=== PATIENT | female | born 1980 | race Caucasian/White ===

== ENCOUNTER → 2017-05-31 | Outpatient (CLI) | payer BC ==
[~2017-05-31] MED LIST: PRENTAB26 PO
--- NOTE | 2017-05-31 08:19 | DIAGNOSTIC IMAGING REPORT ---
CERVICAL WITHOUT CONTRAST CLINICAL HISTORY: 36 years-old Female presenting with NECK L ARM PAIN/WEAKNESS, neck pain, numbness. TECHNIQUE: Multisequence, multiplanar MR imaging of the cervical spine was performed without the use of intravenous contrast. IV contrast: None. COMPARISON: 11/15/2015. FINDINGS: Localizer images: Unremarkable. Straightening of normal cervical lordosis likely positional. Vertebral bodies maintain normal height, alignment, and bone marrow signal intensity. Intervertebral discs largely preserved though minimal desiccation evident at C5-6. At this level, a small disc osteophyte complex is noted which does not significantly efface the ventral thecal sac. Similarly, there is no spinal canal stenosis noted elsewhere. Neural foramina are widely patent. Cervical spinal cord normal in morphology and signal intensity. No epidural collection. Paraspinal soft tissues within normal limits. IMPRESSION: No significant neural foraminal or spinal canal narrowing. Mild focal degenerative change with a disc osteophyte complex noted at C5-6. This is slightly progressed since the prior exam. Electronically signed by: Dwight Jean-Baptiste M.D. 05/31/2017 8:17 AM Dictated Date/Time: 05/31/2017 8:11 AM
== END | disposition home or self-care (01) ==
LOC: C.MRIBC 07:09
PROVIDERS: ATTEND Orthopaedic Surgery
DX: M79.605 Pain in left leg (principal); M62.81 Muscle weakness (generalized)

== ENCOUNTER → 2017-10-12 | Outpatient (CLI) | payer BC ==
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
== END | disposition home or self-care (01) ==
LOC: C.MRIBC 10:31
PROVIDERS: ATTEND Orthopaedic Surgery
DX: M25.412 Effusion, left shoulder (principal)